=== PATIENT | female | born 1985 | race Caucasian/White ===

== ENCOUNTER 2024-09-01 11:10 | Emergency (ER) | payer MEDICAID, OTHER ==
[~2024-09-01] VITALS: Ht 165.1 cm; Wt 87.4 kg
[2024-09-01 11:13] VITALS: TEMP 98
[2024-09-01 11:24] VITALS: BP 119/90; PULSE 99; O2SAT 98
--- NOTE | 2024-09-01 11:30 | Physician Documentation ---
History of Present Illness ~ Chief Complaint: Weakness Stated Complaint: FEELING "WEIRD"SINCE TAKING SEDAFED YESTERDAY Time Seen by MD: 11:11 OK to notify your PCP?: No HPI 39-year-old female presents to the ED with a complaint of racing heart dizziness in mild weakness for approximately 12 hours. She says she took Sudafed with pseudoephedrine in it yesterday because of the ongoing runny nose. P denies chest pain shortness of breath Medication Reconciliation Allergies: Coded Allergies: prednisone (Verified Allergy, Unknown, 09/01/24) Scheduled Hydroxyzine Hcl* (Atarax*), 1 TAB PO Q12H Physical Exam Vital Signs: Temperature: 98.0, Source: Temporal, Heart Rate: 99, Respiratory Rate: 17, BP: 119/90, Pulse Oximetry: 98, Weight: 87.400 Progress Results/Orders Results/Orders Vital Signs 09/01/24 09/01/24 09/01/24 11:13 11:24 11:51 Temp 98.0 Pulse 96 99 Resp 18 17 15 B/P (MAP) 135/65 119/90 (100) Pulse Ox 99 98 Medical Decision Making Findings I explained to the patient that pseudoephedrine is a building black or an ingredient secondary to methamphetamine production. Feeling that this is likely was causing her racing heart mild dizziness. This was reassuring to the patient. Advised the patient not to take pseudoephedrine any longer safe for discharge Differential Dx:Considerations: Include: anemia, CVA, dehydration, dysrhythmia, electrolyte imbalance, encephalopathy, [place], hypoglycemia, hypotension, hypovolemia, labyrinthitis, Meniere's disease, myasathenia gravis, myocardial infarction, pulmonary embolus, renal failure, respiratory failure, TIA, VBI, vertigo central, vertigo peripheral, vestibular neuronitis, other Departure Disposition: 01 HOME / SELF CARE / HOMELESS Impression: Primary Impression: Dehydration Additional Impression: Accidental drug ingestion Condition: Stable Additional Instructions: Discussed with the you I do not think Sudafed your in his a good drug for you to take as you negatively reacted to it. Follow up for any worsening symptoms Referrals: NO PRIMARY CARE PROVIDER (PCP) Prescriptions Hydroxyzine Hcl* (Atarax*) 25 Mg Tablet 1 TAB PO Q12H for anxiety for 30 Days, #60 TAB Prov: STERLING MIDDLETON NP 09/01/24 Signature Scribe Signature: amaury Attestation: The note accurately reflects work and decisions made by me.Sterling Middleton - LUCERO 09/01/24 18:12 STERLING MIDDLETON NP September 01, 2024 11:30
[2024-09-01] MEDS ORDERED: HYDR-3686 PO (11:44)
[2024-09-01 11:51] VITALS: RESP 15
== END 2024-09-01 11:55 | disposition home or self-care (01) ==
LOC: ER 11:10
DX: R42 Dizziness and giddiness (principal); T44.995A Adverse effect of other drug primarily affecting the autonomic nervous system, initial encounter; E86.0 Dehydration; Z88.8 Allergy status to other drugs, medicaments and biological substances; Z79.899 Other long term (current) drug therapy; Y92.89 Other specified places as the place of occurrence of the external cause
CPT/HCPCS: 99283